=== PATIENT | female | born 1960 | race Caucasian/White ===

== ENCOUNTER 2024-10-23 08:56 | Inpatient (IN) ==
--- NOTE | 2024-10-11 13:35 | Anesthesiology Consultation ---
Date of Service October 11, 2024 Assessment & Plan (1) Encounter for pre-operative examination: - Infectious disease screening: Per assessment on 10/11/24- No known recent infectious disease contacts or current infectious disease symptoms. - ASA/Plavix/Xarelto instructions per surgeon/prescriber - Vascular surgery visit (10/08/24): "Patient does have significant bilateral ICA stenosis. Her right side is about 60 to 70% on CTA, her left ICA, however, does demonstrate at least 90% stenosis.. Patient elected proceed with left TCAR.. We did send a prescription for Plavix to the pharmacy today for her to begin taking" - A[place] [facility] [place] (appt 10/12). Patient otherwise acceptable risk for given surgery pending evaluation DOS. Chart Review Chart Review: Patient NOT seen in Pre Admission Testing History Surgery Operation Date: 10/23/24 12:00 Proposed Procedures p Transcarotid Artery Revascularization - Nickolas Davenport MD Height/Weight Height: 5 ft 4 in Weight: 53.977 kg Allergies Allergy/AdvReac Type Severity Reaction Status Date / Time Hgazuzh-IUU-IxO Reductase Allergy Mild "can't Verified 10/11/24 13:25 Inhibitor walk" Medications Home Medications Medication Instructions Recorded Confirmed Last Taken acetaminophen 650 mg 650 mg PO Q8H PRN Pain 12/30/23 10/11/24 Unknown tablet,extended release (Tylenol Arthritis Pain) amlodipine 5 mg tablet 5 mg PO HS 10/11/24 10/11/24 Unknown aspirin 81 mg tablet,delayed 81 mg PO QAM 10/11/24 10/11/24 Unknown release (Adult Low Dose Aspirin) cholecalciferol (vitamin D3) 50 50 mcg PO QAM 10/11/24 10/11/24 Unknown mcg (2,000 unit) capsule (Vitamin D3) ezetimibe 10 mg tablet 10 mg PO HS 10/11/24 10/11/24 Unknown lisinopril 10 mg tablet 10 mg PO QAM 10/11/24 10/11/24 Unknown mmfmzgpb-ctod-besx 8 mg-folic 400 1 tab PO QAM 10/11/24 10/11/24 Unknown mcg-K 50 mcg-lutein 300 mcg tablet (Centrum Silver Women) rivaroxaban 20 mg tablet (Xarelto) 75 mg PO QAM 10/11/24 10/11/24 Unknown Past Medical History Medical History Carotid artery stenosis History of palpitations HTN (hypertension) Lumbar back pain Hx cortisone injections, most recent ~ 2 months ago PAD (peripheral artery disease) Post bilateral lower extremity SFA angioplasty/stenting x3 stents (most recent 08/2023) Follows with [facility] Past Family History Family History Mother Myocardial infarction Coronary heart disease S/P CABG (coronary artery bypass graft) Alzheimer disease Father Lymphoma Brother Lymphoma Denies family history of Ovarian cancer Prostate cancer Breast cancer Colorectal cancer Past Surgical History Surgical History H/O tooth extraction all teeth extracted History of breast lift History of tubal ligation S/P ORIF (open reduction internal fixation) fracture L wrist- plate S/P peripheral artery angioplasty with stent placement Post bilateral lower extremity SFA angioplasty/stenting x3 stents total (Rx2, Lx1) Most recent 08/26/23 Social History Smoking Status: Current every day smoker tobacco type: cigarettes Smoking cigarettes per day: 1.5 ppd (advised) Do You Dip or Chew Tobacco: No Hx Alcohol Use: Yes Alcohol type: beer alcohol intake frequency: a few times a week Alcohol Intake Frequency Comment: 3-4 beers once per week Hx Substance Use: No substance use type: does not use Lab Results Anesthesia Preop Results Results Anesthesia Widget: WBC 7.20 K/ul (4.8-10.8) 10/08/24 Hgb 15.0 g/dl (12.0-16.0) 10/08/24 Hct 44.0 % (37.0-47.0) 10/08/24 Plt 455 K/uL (130-400) H 10/08/24 Na 137 mmol/L (136-145) 10/08/24 K 3.9 mmol/L (3.5-5.1) 10/08/24 Cl 102 mmol/L (98-107) 10/08/24 CO2 29 mmol/L (21-32) 10/08/24 BUN 8 mg/dl (6-23) 10/08/24 Creat 0.71 mg/dl (0.6-1.2) 10/08/24 Glucose Level 89 mg/dl (70-99(Fasting)) 10/08/24 PTT 27 Seconds (21-31) 10/08/24 Blood Type B Positive 10/08/24 Antibody Screen NEGATIVE 10/08/24 Testing Electrocardiogram Date: 10/08/24 Normal sinus rhythm at 69 bpm. Low voltage QRS. "Otherwise normal ECG " No significant change compared to 06/13/2023 per signal and communications maintainer comparison. Poor data quality. Chest X-Ray Date: 10/08/24 Findings: + NAD Other Testing 3 day galvanizer zinc Indication: palpitations Date: 11/03/23 Sinus rhythm (61-120; Avg 82 bpm). Rare PACs. Rare PVCs Few episodes of brief paroxysmal SVT (longest 11 beats). Neck CTA Date: 09/20/24 "Reports severe stenosis within the proximal left internal carotid artery demonstrating up to 90% stenosis. There is also severe focal stenosis within the proximal right internal carotid artery approximately 1 cm from the bifurcation demonstrating 80% stenosis. The mid to distal bilateral internal carotid arteries appear patent." Atheromatous calcification seen in right carotid bulb extending to right ICA causing 30-40% luminal narrowing. Eccentric at the thrombus calcification seen in left carotid bulb causing mild luminal narrowing.
--- NOTE | 2024-10-22 14:41 | History & Physical Report ---
Date of Service October 22, 2024 History of Present Illness Primary Care Provider: Ivette Feng DO Name: RADHA MARIE Patient Number: [id number] : 1960 Date of Service: 10/08/2024 Chief Complaint: _Follow-up to discuss CTA HPI: _Ms. Marie is a middle-age female presents to Dr. Davenport's vascular surgery clinic today for a follow-up appointment to discuss her neck CTA which was performed at [facility] on 09/20/2024. Patient denies any new concerns or symptoms. She is anxious for her results. CTA of her neck does demonstrate at least 90% stenosis of her left ICA, and 60 to 70% stenosis of her right ICA. Current Home Meds: (Last Updated 10/08 13:44) amLODIPine (amLODIPine 5 mg oral tablet) 5 mg PO Daily aspirin (Aspirin Low Dose 81 mg oral delayed release tablet) 81 mg PO Daily cholecalciferol (Vitamin D3 25 mcg (1000 intl units) oral capsule) 25 mcg PO Daily clopidogrel (Plavix 75 mg oral tablet) 75 mg PO Daily ezetimibe (ezetimibe 10 mg oral tablet) 10 mg PO Daily lisinopril (lisinopril 10 mg oral tablet) 10 mg PO Daily multivitamin 1 tab PO Daily Allergies and Sensitivities: Statins (HMG-CoA reductase inhibitors)(Muscle weakness) Past Medical History: Problems: Tobacco user Bilateral carotid artery stenosis OBJECTIVE Vitals: Last Updated 10/08/24 13:14 Date Temp BP Location Pulse RR SpO2 Pain 10/08/24 112/84 Right Arm 10/08/24 142/86 Left Arm 88 18 98 0 08/23/24 128/76 Right Arm Vital Signs are the last 3 documented. No Orthostatic Data Available Height and Weight: Last Updated 10/08/24 13:08 Date BMI Wt(kg) Wt(lb) Method Ht(cm) (ft-in) Method 10/08/24 53.5 118 Standing Scale Heights and Weights are the last 3 documented. Physical Exam Constitutional: Annual patient is a healthy-appearing well-nourished well- developed middle-aged female in no distress. She is alert and oriented with any focal deficits. Head is normocephalic and atraumatic. Trachea is midline. Carotids do demonstrate a faint bruit. Heart is regular, lungs are decreased but clear throughout. Abdomen is soft nontender with normal bowel sounds in all 4 quadrants. Brachial and radial pulses are +3 in the left +2 on the right. Femoral pulses are +2. Lower extremities the pulses are +1 DP, nonpalpable PTs. She has brisk capillary fill and no sign of distal ischemia ASSESSMENT: _ PLAN: _ 1 ) _bilateral carotid stenosis Patient does have significant bilateral ICA stenosis. Her right side is about 60 to 70% on CTA, her left ICA, however, does demonstrate at least 90% stenosis. This does provide her significantly increased risk of CVA. Surgical options were discussed with the patient today including carotid endarterectomy versus transcarotid artery revascularization. Patient elected proceed with left TCAR. The procedure, benefits, and alternatives were discussed with the patient. Additionally the risks of the procedure including but not limited to bleeding, infection, heart attack, nerve damage, , blood clots, and stroke, were discussed with the patient by myself at Dr. Davenport's request. Patient expresses understanding and agreement to proceed. This will occur in the next few weeks at the patient's convenience. We did send a prescription for Plavix to the pharmacy today for her to begin taking in preparation for her upcoming procedure. She understands that she will require DAPT as well as her cholesterol medication for at least 1 year postoperatively. Patient was advised to call any questions or concerns. Thank you for letting us participate in the care of this patient. I have personally spent_38__ minutes performing keei-ob-gsqc and ykr-hzwc-te-face activities on this date of service.Time does not include separately reported services. Activities Include: x__ review of the medical record x__ obtaining a history _x_ physical exam/evaluation __ review labs x__ review radiology reports x__ counseling/educating patient/family/caregiver __ discussion/referral to other healthcare professional _x_ documenting care in the medical record __ independent interpretation of results x__ communication of results to patient/family/caregiver x__ coordination of care Signature Line Electronic Signature on File CC: Sindi Caballero PA-C [facility] [address] [address] * Electronically Reviewed/Signed by: India Mckenna PA-C Author Signature Dt/Tm:10/08/2024 02:02 PM [facility] [place] [address], [address] [place] [address] LM Result Type: HVI Outpt Note Date of Service: October 08, 2024 13:58 EST Authorization Status: Final Author or Import Date: BRITTANY Mckenna Lynn on October 08, 2024 14:02 EST Verified By: BRITTANY Mckenna Lynn on October 08, 2024 14:02 EST Encounter info: [id number], [facility], Clinic, 10/08/2024 - 10/08/2024 Allergies Allergy/AdvReac Type Severity Reaction Status Date / Time Aaazcch-GYT-YcY Reductase Allergy Mild "can't Verified 10/11/24 13:25 Inhibitor walk" Home Medications Medication Instructions Recorded Confirmed Type acetaminophen 650 mg 650 mg PO Q8H PRN Pain 12/30/23 10/11/24 History tablet,extended release (Tylenol Arthritis Pain) amlodipine 5 mg tablet 5 mg PO HS 10/11/24 10/11/24 History aspirin 81 mg tablet,delayed 81 mg PO QAM 10/11/24 10/11/24 History release (Adult Low Dose Aspirin) cholecalciferol (vitamin D3) 50 50 mcg PO QAM 10/11/24 10/11/24 History mcg (2,000 unit) capsule (Vitamin D3) ezetimibe 10 mg tablet 10 mg PO HS 10/11/24 10/11/24 History lisinopril 10 mg tablet 10 mg PO QAM 10/11/24 10/11/24 History dbyqtymz-fwnm-vdqo 8 mg-folic 400 1 tab PO QAM 10/11/24 10/11/24 History mcg-K 50 mcg-lutein 300 mcg tablet (Centrum Silver Women) celecoxib 100 mg capsule (Celebrex) 100 mg PO BID pain #60 caps 10/12/24 Rx clopidogrel 75 mg tablet 75 mg PO DAILY #30 tabs 10/12/24 Rx evolocumab 140 mg/mL subcutaneous 140 mg subcut .every 2 weeks #2 mL 10/12/24 10/12/24 Rx pen injector (Ayleen Morgan) Past Med/Surg History Problem List (Updated 10/11/24 @ 13:27 by Macie Lilly) Encounter for pre-operative examination Tobacco use disorder Dyslipidemia HTN (hypertension) Vitamin D deficiency PAD (peripheral artery disease) Medical History Carotid artery stenosis History of palpitations HTN (hypertension) Lumbar back pain Hx cortisone injections, most recent ~ 2 months ago PAD (peripheral artery disease) Post bilateral lower extremity SFA angioplasty/stenting x3 stents (most recent 08/2023) [facility] Surgical History H/O tooth extraction all teeth extracted History of breast lift History of tubal ligation S/P ORIF (open reduction internal fixation) fracture L wrist- plate S/P peripheral artery angioplasty with stent placement Post bilateral lower extremity SFA angioplasty/stenting x3 stents total (Rx2, Lx1) Most recent 08/26/23 Family History Mother Myocardial infarction Coronary heart disease S/P CABG (coronary artery bypass graft) Alzheimer disease Father Lymphoma Brother Lymphoma Denies family history of Ovarian cancer Prostate cancer Breast cancer Colorectal cancer Social History Smoking Status: Current every day smoker Tobacco Type: Cigarettes Age Started Using Tobacco: 16; packs per day: 1; Cigarettes Per Day: 1.5 ppd (advised); Second Hand Exposure: No; Do You Dip or Chew Tobacco: No; Tobacco Cessation Education Requested by Patient: No Hx Alcohol Use: Yes Alcohol type: beer Alcohol Intake Frequency: Monthly or Less Hx Substance Use: No Preferred Language: Maori Communication Ability: Effective Visual Impairment: No Limitations Hearing Ability: Normal Tooling Supervisor Required: No Beliefs That Will Affect Care: None marital status: Current Living Situation: Spouse Current Living Situation Comment: works away, home for 2 weeks every 2 months current occupational status: unemployed Other Information That Helps Us Care for You: No Feels Safe at Home: Yes Safety Concerns: Feels Safe At This Time Childhood Exposure to Second-Hand Smoke: No Diet: regular caffeine: Yes (coffee) during the past year weight has: remained stable Dental Care, Regularly: No Physical Activity Frequency: Daily Seatbelt Use: sometimes Sunscreen Use: No Assistive Devices: Denture - Upper, Denture - Lower and Glasses
[2024-10-23] MEDS: LACTATED RINGER'S 1,000 ML IV SCH ×2 (09:20→13:52)
--- NOTE | 2024-10-23 09:35 | History & Physical Bridge Note ---
Date of Service October 23, 2024 History & Physical Bridge Note I have examined the patient, reviewed the History & Physical and in the interval since the performance of the History & Physical I have noted the following changes of clinical significance: no changes noted
[2024-10-23] MEDS ORDERED: ePHEDrine sulfate 50 MG/ML AMP IV PRN (09:40)
[2024-10-23] MEDS ORDERED: PROMETHAZINE HCL 6.25 MG in SODIUM CHLORIDE 0.9% 50 ML IV PRN (09:40)
[2024-10-23] MEDS ORDERED: ATROPINE SULFATE 0.1 MG/ML 10ML SYR IV PRN (09:40)
[2024-10-23] MEDS ORDERED: fentaNYL citrate PF 100 MCG/2 ML VIAL IV PRN (09:40)
[2024-10-23] MEDS ORDERED: ONDANSETRON INJ 2 MG/ML 2 ML VIAL IV PRN ×2 (09:40→13:07)
[2024-10-23 09:58] LABS: BUN Creatinine Ratio 21.1 (10-20); Calcium 9.5 mg/dl (8.6-10.3); Creatinine Clr Calc Pharmacy 66.7 ml/min
[2024-10-23] MEDS ORDERED: fentaNYL citrate PF 100 MCG/2 ML VIAL ONE ×2 (10:04→10:57)
[2024-10-23] MEDS ORDERED: MIDAZOLAM HCL 1 MG/ML 2ML VIAL ONE (10:04)
[2024-10-23] MEDS ORDERED: PROPOFOL IV EMULSION 10 MG/ML 20 ML VIAL IV ONE (10:06)
[2024-10-23] MEDS ORDERED: ROCURONIUM BROMIDE 10 MG/ML 5 ML VIAL IV ONE (10:06)
[2024-10-23] MEDS ORDERED: LIDOCAINE 2% 2 ML VIAL/AMP(20MG/ML) INFIL ONE (10:06)
[2024-10-23] MEDS ORDERED: GLYCOPYRROLATE 0.2 MG/ML VIAL ONE (10:06)
[2024-10-23] MEDS ORDERED: DEXAMETHASONE SOD INJ 4 MG/ML VIAL ONE (10:09)
[2024-10-23] MEDS ORDERED: ONDANSETRON INJ 2 MG/ML 2 ML VIAL ONE (10:09)
[2024-10-23] MEDS: ceFAZolin 2000MG 2,000 MG/15 ML SYR IV SCH ×2 (10:44→18:16)
[2024-10-23] MEDS ORDERED: ePHEDrine sulfate 50 MG/5 ML SYR ONE (10:46)
[2024-10-23] MEDS ORDERED: PHENYLEPHRINE HCL 10 MG/ML VIAL ONE (11:21)
[2024-10-23] MEDS: THROMBIN FOR SOLN 20000 UNIT KIT ONE (11:22)
[2024-10-23] MEDS: GELATIN SPONGE SZ 100 ONE (11:22)
[2024-10-23] MEDS ORDERED: SUGAMMADEX SODIUM 200 MG/2 ML VIAL IV ONE (11:25)
[2024-10-23] MEDS: BUPIVACAINE/EPINEPHRINE 0.5% MPF 1:200,000 30 ML VIAL ONE (11:36)
[2024-10-23] MEDS: ceFAZolin 330 MG/ML 1 GM VIAL ONE (11:42)
[2024-10-23] MEDS: VISIPAQUE IV ONE (11:44)
--- NOTE | 2024-10-23 11:45 | Procedure Note ---
Angiogram Post Procedure Fluoroscopy Time (minutes): 1.6 Radiation (mGy): 18 Contrast: 9 Post Operative Report Pre & Post Diagnosis Operation Date: 10/23/24 10:10 Pre-Op Diagnosis: Left Internal Carotid Artery Stenosis Post-Op Diagnosis: Left Internal Carotid Artery Stenosis I identified the patient and participated in the time-out.: Yes Procedure Operation Date: 10/23/24 10:10 Actual Procedures p Left Transcarotid Artery Revascularization(Left), Ultrasound right common femoral vein - Nickolas Davenport MD Surgeon Nickolas Davenport MD Mechanic Welder Truck Driver Papo,PAC Estimated Blood Loss 10 Findings Consistent with Post-Op Diagnosis Specimens none Anesthesia Type General Complications none Disposition Accompanied Patient To Recovery: No Disposition: Recovery Room Indications This is a 64-year-old female Smaldone with have a severe stenosis of the left internal carotid artery. Endarterectomy versus TCAR was recommended. She elected to go ahead with a TCAR procedure. I have discussed the risks options and benefits of the procedure with the patient. The patient understands the risks options and benefits and agrees to the procedure. Description of Procedure The patient was taken to the operating room and placed in supine position. After general anesthesia was accomplished the groins and left side of the neck and chest were prepped and draped in a sterile manner. Timeout was performed and the patient was identified. A transverse incision was made just above the clavicle between the heads of the sternocleidomastoid. This was carried down to where the common carotid artery was identified. It was isolated and slung with an umbilical tape. It was given 7000units of heparin at that time. Ultrasound was then used to localize the right common femoral vein. The vein was patent and compressed easily. Under ultrasound guidance the right common femoral vein was punctured and the venous sheath was inserted. This was aspirated and flushed with heparinized saline. An ACT at that time was 241. Another 2000 and units of heparin were given and follow-up ACT was 252. Using micropuncture technique the common carotid artery was punctured using a tunneling technique.. The micro sheath was inserted to 3 cm. Injection was then done showing the bifurcation. There was a significant lesion seen just beyond the origin of the internal carotid artery on the left side. We reinserted the micro wire and sheath and passed it into the external carotid. We then advanced the dilator and sheath into the external carotid. The dilater and sheath were removed. We then inserted the J-wire into the external carotid artery. The TCAR sheath was inserted. Once it was in place at the 2 and half centimeter flores it was sutured to the chest wall and the incision edge. We then flushed the tubing appropriately. The venous return tubing was clamped onto the TCAR sheath. It was flushed through and then attached to the venous inflow sheath in the right groin. The sheath was checked for flow. The common carotid artery was then clamped. Flow through the venous return sheath was again checked and found to be adequate. We then inserted a 5 x 25 balloon backloaded on the wire. The wire was passed through the lesion into the petrous portion of the internal carotid. The 5 balloon was then advanced to the lesion. The lesion was then predilated with the 5 mm balloon. The balloon was removed. We then inserted the 9/7 x 30 stent. This was deployed across the lesion without difficulty. The catheter was removed. The carotid was allowed to go 2 minutes with flow reversal. We did another angiogram which showed no residual stenosis and a nicely seated stent.The wire was removed and the common carotid artery was unclamped. The venous return tubing was clamped and removed from the TCAR sheath. The blood was allowed to flow back into the venous system. The TCAR sheath was then removed and the 5-0 Prolene suture securely tied. Hemostasis was noted of the puncture site. The patient was given 25 mg of protamine. Another ACT was performed which was 118. The sheath was pulled from the groin and pressure was applied. Wound was irrigated with Ancef solution. Adequate hemostasis was obtained of the wound. Once this was noted the wound was closed in usual fashion using a 3-0 Vicryl suture for the subcutaneous layer and a 4-0 subcuticular Vicryl suture for the skin edges. Dermabond was used for dressing.The patient left the operation room in satisfactory condition and tolerated the procedure well. All needle and sponge counts were correct at the end of the procedure. India Mckenna Pac assisted due to lack of resident availability and was necessary for positioning, draping, retraction, wound closure deep layers, subcutaneous tissue, and skin closure and was necessary for assisting with the case. I attest to the content of the Intraoperative Record and any orders documented therein. Any exceptions are noted below.
--- OUTSIDE RECORDS SUMMARY | 2024-10-23 12:00 | External Medical Summary | Continuity of Care Document ---
Author Name Unknown Organization [facility] [address] Address [address] [place], [place] [id number] Care Team Providers Care Youth Care Worker Name Role Phone Federico, Sindi Lucas Primary Care Physician [phone] Encounter [facility] [id number] Date(s): 10/16/24 - 10/16/24 [facility] [address] [facility] [address] [place], [place] [phone] Encounter Diagnosis Occlusion and stenosis of bilateral carotid arteries(Final) - Discharge Disposition: Home or Self Care Attending Physician: BRITTANY Mckenna Lynn Referring Physician: BRITTANY Mckenna Lynn Encounter Type: Clinic Allergies, Adverse Reactions, Alerts Substance Criticality Severity Reaction Reaction Severity Status Statins (HMG-CoA reductase inhibitors) Muscle weakness Act santiago Medications amLODIPine 5 mg oral tablet Start: 10/08/24 1:10:00 PM EST, 1 tab, PO, Daily Start Date: 10/08/24 Status: Ordered Repeat number: 1 Aspirin Low Dose 81 mg oral delayed release tablet Start: 08/23/24 8:57:00 AM EST, 1 tab, PO, Daily Start Date: 08/23/24 Status: Ordered Repeat number: 1 ezetimibe 10 mg oral tablet Start: 08/23/24 8:57:00 AM EST, 1 tab, PO, Daily Start Date: 08/23/24 Status: Ordered Repeat number: 1 lisinopril 10 mg oral tablet Start: 08/23/24 8:57:00 AM EST, 1 tab, PO, Daily Start Date: 08/23/24 Status: Ordered Repeat number: 1 multivitamin Start: 10/08/24 1:10:00 PM EST, 1 tab, PO, Daily Start Date: 10/08/24 Status: Ordered Repeat number: 1 Plavix 75 mg oral tablet Start: 10/11/24 10:27:00 AM EST, 1 tab, PO, Daily, Disp# 90 tab, Refills: 3, Pharmacy: [facility] Start Date: 10/11/24 Status: Ordered Quantity: 90.0 Unit: tab Repeat number: 4 Indication: Occlusion and stenosis of bilateral carotid arteries Vitamin D3 25 mcg (1000 intl units) oral capsule Start: 08/23/24 8:57:00 AM EST, 1 cap, PO, Daily Start Date: 08/23/24 Status: Ordered Repeat number: 1 Problem List Condition Confirmation Course Effective Dates Status Health St atus Informant Bilateral carotid artery stenosis Confirmed Active Tobacco user Confirmed Active Results Laboratory List Name Date Platelet Function (P2Y12 Receptor) (PLT FUNCTION P2Y12) 10/16/24 Most recent to oldest [Reference Range]: 1 P2Y12 Platelet Function [194-418 PRU] 5 PRU 1 *LOW* (10/16/24 11:58 AM) 1Result Comment: PRU reference range is 194-418 (healthy adults, no drug treatment). Post Drug Results: Lower PRU levels are expected following treatment with antiplatelet drugs. Post-treatment values are usually below the stated reference range above. The post-drug PRU values reported in the Ver[employer]NOW P2Y12 package insert are 18-435. This broader range reflects the variability in drug response and is consistent with significant numbers of patients with decreased sensitivity to P2Y12 receptor antagonists (prasugrel or clopidogrel). Clinical studies suggest an on-treatment PRU>230 indicates less than optimal response to therapy, and PRU<208 at 12-24 hours after percutaneous intervention or during follow-up is associated with a lower risk of cardiovascular events (1). (1).Standard-vs high-dose clopidogrel based on platelet function testing after percutaneouscoronary intervention: the GRAVITAS randomized trial. Aftab et al. KYLE. 2010October 21; 305(11): 3836-9796. doi: 10.1001/kyle.2011.290 Social History Social History Type Response Smoking Status Current every day he cary smoker Sex Sex Representation Female (finding) Patient Care team information Care Team Personnel Name: BRITTANY Mckenna Lynn Position: Physician Shovel Loader Operator Exempt - Vasc Surg Member Role: Lifetime Relationship [address]: [address] [place] [address] Telecom: [phone] Name: BRITTANY Caballero Taylor A Position: Referring Member Role: Primary Care Provider Address: [facility] [address] [facility] [address] Telecom: [phone] Insurance Providers Guarantor name: Health Plan Information #: 2 Payer: MEDICARE Member Number: [id number] Policy Number: DUSTIN Group Number: DUSTIN Health Plan Information #: 1 Payer: [employer] OPEN [employer]ESS PLUS Member Number: [id number] Policy Number: DUSTIN Group Number: [id number]
[2024-10-23] MEDS ORDERED: oxyCODONE/ACETAMINOPHEN 5mg/325mg TAB PO PRN (13:07)
[2024-10-23] MEDS ORDERED: PHENYLEPHRINE/NSS 25 MG/250 ML BAG IV PRN (13:07)
[2024-10-23] MEDS ORDERED: STAT IV Infusion **Titration per Protocol STA (13:07)
[2024-10-23] MEDS ORDERED: ACETAMINOPHEN 325 MG TAB PO PRN (13:13)
--- NOTE | 2024-10-23 15:40 | Critical Care Consultation ---
Date of Consultation October 23, 2024 Assessment & Plan (1) Left carotid stenosis: Reason Critically Ill: Status post left transcarotid stenting PLAN: Neuro: Postprocedural analgesia -Per surgery Resp: Tolerating room air CV: Hypertension -Continue antihypertensives ID: Antibiotics per vascular surgery GI/Nutrition: Tolerating regular diet Heme: DVT prophylaxis: Patient is ambulatory status Endocrine: ICU hyperglycemia protocol Vascular access: Peripheral IVs and radial arterial line Code Status: Full code Disposition: ICU (2) HTN (hypertension): (3) PAD (peripheral artery disease): History of Present Illness Reason for Consultation: Postop TCAR Attending Physician: Nickolas Davenport MD History of Present Illness Patient is a 64-year-old female who underwent a left internal carotid artery stenting. During my evaluation patient was eating lunch without complaint. Blood pressure well-controlled at this time Allergies Allergy/AdvReac Type Severity Reaction Status Date / Time Kanriai-RNT-IgJ Reductase Allergy Mild "can't Verified 10/23/24 09:03 Inhibitor walk" Home Medications Medication Instructions Recorded Confirmed Type acetaminophen 650 mg 650 mg PO Q8H PRN Pain 12/30/23 10/23/24 History tablet,extended release (Tylenol Arthritis Pain) amlodipine 5 mg tablet 5 mg PO HS 10/11/24 10/23/24 History aspirin 81 mg tablet,delayed 81 mg PO QAM 10/11/24 10/23/24 History release (Adult Low Dose Aspirin) cholecalciferol (vitamin D3) 50 50 mcg PO QAM 10/11/24 10/23/24 History mcg (2,000 unit) capsule (Vitamin D3) ezetimibe 10 mg tablet 10 mg PO HS 10/11/24 10/23/24 History lisinopril 10 mg tablet 10 mg PO QAM 10/11/24 10/23/24 History saydmzma-joog-voro 8 mg-folic 400 1 tab PO QAM 10/11/24 10/23/24 History mcg-K 50 mcg-lutein 300 mcg tablet (Centrum Silver Women) celecoxib 100 mg capsule (Celebrex) 100 mg PO BID pain #60 caps 10/12/24 10/23/24 Rx clopidogrel 75 mg tablet 75 mg PO DAILY #30 tabs 10/12/24 10/23/24 Rx evolocumab 140 mg/mL subcutaneous 140 mg subcut .every 2 weeks #2 mL 10/12/24 10/23/24 Rx pen injector (Repatha SureDustyick) Patient History Medical History Lumbar back pain Hx cortisone injections, most recent ~ 2 months ago Carotid artery stenosis History of palpitations HTN (hypertension) PAD (peripheral artery disease) Post bilateral lower extremity SFA angioplasty/stenting x3 stents (most recent 08/2023) Follows with [facility] vascular Surgical History S/P peripheral artery angioplasty with stent placement Post bilateral lower extremity SFA angioplasty/stenting x3 stents total (Rx2, Lx1) Most recent 08/26/23 S/P ORIF (open reduction internal fixation) fracture L wrist- plate History of breast lift H/O tooth extraction all teeth extracted History of tubal ligation Family History Mother Myocardial infarction Coronary heart disease S/P CABG (coronary artery bypass graft) Alzheimer disease Father Lymphoma Brother Lymphoma Denies family history of Ovarian cancer Prostate cancer Breast cancer Colorectal cancer Social History Smoking Status: Current every day smoker Tobacco Type: Cigarettes Age Started Using Tobacco: 16; packs per day: 1; Cigarettes Per Day: 1.5 ppd (advised); Second Hand Exposure: No; Do You Dip or Chew Tobacco: No; Tobacco Cessation Education Requested by Patient: No Hx Alcohol Use: Yes Alcohol type: beer Alcohol Intake Frequency: Monthly or Less Hx Substance Use: No Preferred Language: Bermudian Communication Ability: Effective Visual Impairment: No Limitations Hearing Ability: Normal Newspaper Deliverer Required: No Beliefs That Will Affect Care: None marital status: Current Living Situation: Spouse Current Living Situation Comment: works away, home for 2 weeks every 2 months current occupational status: unemployed Other Information That Helps Us Care for You: No Feels Safe at Home: Yes Safety Concerns: Feels Safe At This Time Childhood Exposure to Second-Hand Smoke: No Diet: regular caffeine: Yes (coffee) during the past year weight has: remained stable Dental Care, Regularly: No Physical Activity Frequency: Daily Seatbelt Use: sometimes Sunscreen Use: No Assistive Devices: Denture - Upper, Denture - Lower and Glasses Physical Exam Physical Exam: General: Alert. nontoxic. Skin: Warm, dry, left supraclavicular incision clean dry and intact no shadowing small amount ecchymosis Head: Atraumatic Ears, nose, mouth and throat: airway patent Cardiovascular: Normal peripheral perfusion Respiratory: no respiratory distress Gastrointestinal: Non distended Musculoskeletal: No deformity Results & Data Results & Data Vital Signs (Past 12 Hours) Vital Signs Temp Pulse Pulse Resp BP BP BP 10/23/24 15:00 70 13 118/63 127/54 L 10/23/24 14:01 74 19 97/54 L 117/45 L 10/23/24 13:00 10/23/24 13:00 81 15 99/53 L 104/47 L 10/23/24 12:50 36.4 C L 97 H 15 114/68 120/53 L 10/23/24 12:29 36.5 C 89 14 112/60 124/53 L 10/23/24 12:20 93 H 16 120/66 125/55 L 10/23/24 12:10 92 H 16 120/64 127/56 L 10/23/24 12:00 36.2 C L 100 H 18 129/78 10/23/24 08:57 36.6 C 69 20 121/69 116/65 Pulse Ox O2 Del Method O2 Flow Rate 10/23/24 15:00 94 Room Air 10/23/24 14:01 94 Room Air 10/23/24 13:00 Room Air 10/23/24 13:00 93 Room Air 10/23/24 12:50 93 Room Air 10/23/24 12:29 98 Nasal Cannula 2 10/23/24 12:20 100 Nasal Cannula 2 10/23/24 12:10 99 Oxymask 4 10/23/24 12:00 100 Oxymask 6 10/23/24 08:57 97 Room Air Critical Care Results & Data Vital Signs (Past 12 Hours) Vital Signs Temp Pulse Pulse Resp BP BP BP 10/23/24 15:00 70 13 118/63 127/54 L 10/23/24 14:01 74 19 97/54 L 117/45 L 10/23/24 13:00 10/23/24 13:00 81 15 99/53 L 104/47 L 10/23/24 12:50 36.4 C L 97 H 15 114/68 120/53 L 10/23/24 12:29 36.5 C 89 14 112/60 124/53 L 10/23/24 12:20 93 H 16 120/66 125/55 L 10/23/24 12:10 92 H 16 120/64 127/56 L 10/23/24 12:00 36.2 C L 100 H 18 129/78 10/23/24 08:57 36.6 C 69 20 121/69 116/65 Pulse Ox O2 Del Method O2 Flow Rate 10/23/24 15:00 94 Room Air 10/23/24 14:01 94 Room Air 10/23/24 13:00 Room Air 10/23/24 13:00 93 Room Air 10/23/24 12:50 93 Room Air 10/23/24 12:29 98 Nasal Cannula 2 10/23/24 12:20 100 Nasal Cannula 2 10/23/24 12:10 99 Oxymask 4 10/23/24 12:00 100 Oxymask 6 10/23/24 08:57 97 Room Air Lab & Micro Results (Past 24 Hours) No Data to Display Na 136 mmol/L (136-145) 10/23/24 K 4.0 mmol/L (3.5-5.1) 10/23/24 Cl 102 mmol/L (98-107) 10/23/24 CO2 30 mmol/L (21-32) 10/23/24 Anion Gap 4 (3-11) 10/23/24 BUN 15 mg/dl (6-23) 10/23/24 Creatinine 0.71 mg/dl (0.6-1.2) 10/23/24 BUN/Creatinine Ratio 21.1 (10-20) H 10/23/24 Glu 114 mg/dl (70-99(Fasting)) H 10/23/24 Ca 9.5 mg/dl (8.6-10.3) 10/23/24 Calcium Level 9.5 mg/dl (8.6-10.3) 10/23/24 08:58 I & O Totals 24 Hours 10/22/24 10/23/24 10/24/24 06:59 06:59 06:59 Intake Total 1050 / 1050 Output Total Balance 1040 / 1040 Cumulative 10/09/24 08:39 thru 10/23/24 12:30 Intake Total 1050 Output Total 10 Balance 1040 RT Ventilator Mngmt (Last Documented) Ventilator Ordered Settings Respiratory Rate 13 10/23/24 15:00 Ventilator - PT Measurements Respiratory Rate 13 Coding Level of Care Code 21404 IN/OBS CONSULT LVL 2,35M Diagnoses Left carotid stenosis I65.22 HTN (hypertension) I10 PAD (peripheral artery disease) I73.9
--- NOTE | 2024-10-23 15:40 | Anesthesiology Progress Note ---
Date of Service October 23, 2024 Anesthesia Post Procedure Vital Signs Vital Signs: Temp Pulse Pulse Resp BP BP BP 10/23/24 15:00 70 13 118/63 127/54 L 10/23/24 14:01 74 19 97/54 L 117/45 L 10/23/24 13:00 10/23/24 13:00 81 15 99/53 L 104/47 L 10/23/24 12:50 36.4 C L 97 H 15 114/68 120/53 L 10/23/24 12:29 36.5 C 89 14 112/60 124/53 L 10/23/24 12:20 93 H 16 120/66 125/55 L 10/23/24 12:10 92 H 16 120/64 127/56 L 10/23/24 12:00 36.2 C L 100 H 18 129/78 10/23/24 08:57 36.6 C 69 20 121/69 116/65 Pulse Ox O2 Del Method O2 Flow Rate 10/23/24 15:00 94 Room Air 10/23/24 14:01 94 Room Air 10/23/24 13:00 Room Air 10/23/24 13:00 93 Room Air 10/23/24 12:50 93 Room Air 10/23/24 12:29 98 Nasal Cannula 2 10/23/24 12:20 100 Nasal Cannula 2 10/23/24 12:10 99 Oxymask 4 10/23/24 12:00 100 Oxymask 6 10/23/24 08:57 97 Room Air Transfer of Care Handoff Completed per policy Notes Mental Status: alert / awake / arousable Patient Amnestic to Procedure: Yes Nausea / Vomiting: adequately controlled Pain: adequately controlled Airway Patency, RR, SpO2: stable & adequate BP & HR: stable & adequate Hydration State: stable & adequate Anesthetic Complications: no major complications apparent
[2024-10-23] MEDS: EZETIMIBE 10 MG TAB PO SCH (21:08)
[2024-10-23] MEDS: CELECOXIB 100 MG CAP PO SCH (21:08)
[2024-10-23] MEDS: amLODIPine BESYLATE 5 MG TAB PO SCH (22:38)
[2024-10-24] MEDS: ASPIRIN 81 MG ECTAB PO SCH (08:33)
[2024-10-24] MEDS: CEROVITE ADV FORMULA TAB PO SCH (08:33)
[2024-10-24] MEDS: CHOLECALCIFEROL 25 MCG (1000 UNITS) TAB PO SCH (08:33)
[2024-10-24] MEDS: CLOPIDOGREL BISULFATE 75 MG TAB PO SCH (08:34)
[2024-10-24] MEDS: lisinopril 10 MG TAB PO SCH (08:34)
[2024-10-24 10:50] VITALS: O2SAT 94
[2024-10-24 12:14] VITALS: RESP 18; TEMP 98.4
[2024-10-24 12:16] VITALS: BP 131/95; PULSE 93
--- NOTE | 2024-10-24 12:26 | Surgery Progress Note ---
Date of Service October 24, 2024 Assessment & Plan (1) S/P vascular surgery: Plan: Patient POD 1 from tcar. No complicating factors post op. D\C today Admission and Anticipated Discharge Date Admission Date: October 23, 2024 Subjective Patient without complaint. She denies any focal deficits Physical Exam Constitutional: WD/WN, vitals as above Neck: trachea midline Respiratory: normal respiratory effort; no respiratory distress Cardiovascular: Rate/Rhythm: regular rate and regular rhythm Skin: + incision (dry and clean) Neurologic: CN's II-XI intact bilaterally, normal sensation to monofilament and moves all extremities Psychiatric: A+Ox3, euthymic affect Results & Data Vital Signs (Past 12 Hours) Vital Signs Temp Pulse Pulse Resp BP Pulse Ox O2 Del Method 10/24/24 12:13 36.9 C 81 18 94 Room Air 10/24/24 12:03 93 H 18 10/24/24 11:00 131/95 10/24/24 11:00 76 24 94 10/24/24 10:00 119/66 10/24/24 10:00 66 20 94 10/24/24 09:06 73 21 93 10/24/24 09:00 102/52 L 10/24/24 09:00 102/52 L 10/24/24 09:00 102/52 L 10/24/24 08:54 78 21 94 10/24/24 08:41 36.4 C L 10/24/24 08:00 114/74 10/24/24 08:00 68 10/24/24 08:00 Room Air 10/24/24 08:00 Room Air 10/24/24 08:00 79 25 H 91 10/24/24 08:00 114/74 10/24/24 07:00 74 20 93 10/24/24 07:00 123/70 10/24/24 06:09 60 17 93 10/24/24 06:00 123/71 10/24/24 06:00 123/71 10/24/24 06:00 123/71 10/24/24 06:00 123/71 10/24/24 06:00 123/71 10/24/24 06:00 123/71 10/24/24 06:00 123/71 10/24/24 06:00 123/71 10/24/24 06:00 123/71 10/24/24 06:00 123/71 10/24/24 06:00 123/71 10/24/24 05:57 65 16 93 10/24/24 05:00 126/58 L 10/24/24 05:00 126/58 L 10/24/24 05:00 126/58 L 10/24/24 05:00 126/58 L 10/24/24 05:00 126/58 L 10/24/24 05:00 126/58 L 10/24/24 05:00 126/58 L 10/24/24 05:00 126/58 L 10/24/24 05:00 126/58 L 10/24/24 05:00 126/58 L 10/24/24 05:00 126/58 L 10/24/24 05:00 126/58 L 10/24/24 05:00 126/58 L 10/24/24 05:00 126/58 L 10/24/24 05:00 126/58 L 10/24/24 05:00 126/58 L 10/24/24 05:00 126/58 L 10/24/24 05:00 126/58 L 10/24/24 05:00 126/58 L 10/24/24 05:00 126/58 L 10/24/24 05:00 126/58 L 10/24/24 05:00 126/58 L 10/24/24 05:00 126/58 L 10/24/24 05:00 126/58 L 10/24/24 05:00 126/58 L 10/24/24 05:00 126/58 L 10/24/24 05:00 126/58 L 10/24/24 05:00 75 19 94 10/24/24 04:06 63 20 93 10/24/24 04:00 111/53 L 10/24/24 04:00 111/53 L 10/24/24 04:00 111/53 L 10/24/24 03:45 60 12 93 10/24/24 03:26 36.4 C L 10/24/24 03:00 110/63 10/24/24 03:00 110/63 10/24/24 03:00 110/63 10/24/24 03:00 110/63 10/24/24 03:00 110/63 10/24/24 03:00 110/63 10/24/24 03:00 110/63 10/24/24 03:00 110/63 10/24/24 03:00 110/63 10/24/24 03:00 110/63 10/24/24 03:00 110/63 10/24/24 03:00 110/63 10/24/24 03:00 110/63 10/24/24 03:00 110/63 10/24/24 03:00 110/63 10/24/24 03:00 110/63 10/24/24 03:00 110/63 10/24/24 03:00 110/63 10/24/24 03:00 110/63 10/24/24 03:00 59 L 14 94 10/24/24 03:00 110/63 10/24/24 03:00 110/63 10/24/24 03:00 110/63 10/24/24 03:00 110/63 10/24/24 03:00 110/63 10/24/24 03:00 110/63 10/24/24 03:00 110/63 10/24/24 03:00 110/63 10/24/24 03:00 110/63 10/24/24 02:06 60 16 93 10/24/24 02:00 102/51 L 10/24/24 02:00 102/51 L 10/24/24 02:00 102/51 L 10/24/24 02:00 102/51 L 10/24/24 02:00 102/51 L 10/24/24 02:00 102/51 L 10/24/24 02:00 102/51 L 10/24/24 02:00 102/51 L 10/24/24 02:00 102/51 L 10/24/24 02:00 102/51 L 10/24/24 02:00 102/51 L 10/24/24 01:57 65 14 93 10/24/24 01:18 65 10 L 94 10/24/24 01:00 104/55 L 10/24/24 01:00 104/55 L 10/24/24 01:00 104/55 L 10/24/24 01:00 104/55 L 10/24/24 01:00 104/55 L 10/24/24 01:00 104/55 L 10/24/24 01:00 104/55 L 10/24/24 01:00 104/55 L 10/24/24 01:00 104/55 L 10/24/24 01:00 104/55 L 10/24/24 01:00 104/55 L 10/24/24 01:00 104/55 L 10/24/24 01:00 104/55 L 10/24/24 01:00 104/55 L 10/24/24 01:00 104/55 L 10/24/24 01:00 104/55 L 10/24/24 01:00 104/55 L 10/24/24 01:00 104/55 L 10/24/24 01:00 104/55 L 10/24/24 01:00 104/55 L 10/24/24 01:00 104/55 L 10/24/24 00:54 66 15 93
--- NOTE | 2024-10-24 12:30 | Discharge Summary ---
Date of Service October 24, 2024 Admission HPI Per Admitting Provider Name: RADHA MARIE Patient Number: [id number] : 1960 Date of Service: 10/08/2024 Chief Complaint: _Follow-up to discuss CTA HPI: _Ms. Marie is a middle-age female presents to Dr. Davenport's vascular surgery clinic today for a follow-up appointment to discuss her neck CTA which was performed at [facility] on 09/20/2024. Patient denies any new concerns or symptoms. She is anxious for her results. CTA of her neck does demonstrate at least 90% stenosis of her left ICA, and 60 to 70% stenosis of her right ICA. Current Home Meds: (Last Updated 10/08 13:44) amLODIPine (amLODIPine 5 mg oral tablet) 5 mg PO Daily aspirin (Aspirin Low Dose 81 mg oral delayed release tablet) 81 mg PO Daily cholecalciferol (Vitamin D3 25 mcg (1000 intl units) oral capsule) 25 mcg PO Daily clopidogrel (Plavix 75 mg oral tablet) 75 mg PO Daily ezetimibe (ezetimibe 10 mg oral tablet) 10 mg PO Daily lisinopril (lisinopril 10 mg oral tablet) 10 mg PO Daily multivitamin 1 tab PO Daily Allergies and Sensitivities: Statins (HMG-CoA reductase inhibitors)(Muscle weakness) Past Medical History: Problems: Tobacco user Bilateral carotid artery stenosis OBJECTIVE Vitals: Last Updated 10/08/24 13:14 Date Temp BP Location Pulse RR SpO2 Pain 10/08/24 112/84 Right Arm 10/08/24 142/86 Left Arm 88 18 98 0 08/23/24 128/76 Right Arm Vital Signs are the last 3 documented. No Orthostatic Data Available Height and Weight: Last Updated 10/08/24 13:08 Date BMI Wt(kg) Wt(lb) Method Ht(cm) (ft-in) Method 10/08/24 53.5 118 Standing Scale Heights and Weights are the last 3 documented. Physical Exam Constitutional: Annual patient is a healthy-appearing well-nourished well- developed middle-aged female in no distress. She is alert and oriented with any focal deficits. Head is normocephalic and atraumatic. Trachea is midline. Carotids do demonstrate a faint bruit. Heart is regular, lungs are decreased but clear throughout. Abdomen is soft nontender with normal bowel sounds in all 4 quadrants. Brachial and radial pulses are +3 in the left +2 on the right. Femoral pulses are +2. Lower extremities the pulses are +1 DP, nonpalpable PTs. She has brisk capillary fill and no sign of distal ischemia ASSESSMENT: _ PLAN: _ 1 ) _bilateral carotid stenosis Patient does have significant bilateral ICA stenosis. Her right side is about 60 to 70% on CTA, her left ICA, however, does demonstrate at least 90% stenosis. This does provide her significantly increased risk of CVA. Surgical options were discussed with the patient today including carotid endarterectomy versus transcarotid artery revascularization. Patient elected proceed with left TCAR. The procedure, benefits, and alternatives were discussed with the patient. Additionally the risks of the procedure including but not limited to bleeding, infection, heart attack, nerve damage, , blood clots, and stroke, were discussed with the patient by myself at Dr. Davenport's request. Patient expresses understanding and agreement to proceed. This will occur in the next few weeks at the patient's convenience. We did send a prescription for Plavix to the pharmacy today for her to begin taking in preparation for her upcoming procedure. She understands that she will require DAPT as well as her cholesterol medication for at least 1 year postoperatively. Patient was advised to call any questions or concerns. Thank you for letting us participate in the care of this patient. I have personally spent_38__ minutes performing jrcf-rr-loii and cam-nlcp-zf-face activities on this date of service.Time does not include separately reported services. Activities Include: x__ review of the medical record x__ obtaining a history _x_ physical exam/evaluation __ review labs x__ review radiology reports x__ counseling/educating patient/family/caregiver __ discussion/referral to other healthcare professional _x_ documenting care in the medical record __ independent interpretation of results x__ communication of results to patient/family/caregiver x__ coordination of care Signature Line Electronic Signature on File CC: Sindi Caballero PA-C [facility] [address] [place] [id number] * Electronically Reviewed/Signed by: India Mckenna PA-C Author Signature Dt/Tm:10/08/2024 02:02 PM [facility] [address], [address] [place] [address] LM Result Type: HVI Outpt Note Date of Service: October 08, 2024 13:58 EST Authorization Status: Final Author or Import Date: BRITTANY Mckenna, [place] on October 08, 2024 14:02 EST Verified By: BRITTANY Mckenna [place] on October 08, 2024 14:02 EST Encounter info: [id number], [place] [address], Clinic, 10/08/2024 - 10/08/2024 Admission Exam Per Admitting Provider Constitutional: Annual patient is a healthy-appearing well-nourished well- developed middle-aged female in no distress. She is alert and oriented with any focal deficits. Head is normocephalic and atraumatic. Trachea is midline. Carotids do demonstrate a faint bruit. Heart is regular, lungs are decreased bu t clear throughout. Abdomen is soft nontender with normal bowel sounds in all 4 quadrants. Brachial and radial pulses are +3 in the left +2 on the right. Femoral pulses are +2. Lower extremities the pulses are +1 DP, nonpalpable PTs. She has brisk capillary fill and no sign of distal ischemia Principal Diagnosis Left internal carotid artery stenosis Discharge Exam Constitutional WD/WN, vitals as above Neck trachea midline Respiratory normal respiratory effort; no respiratory distress Cardiovascular Rate/Rhythm: regular rate and regular rhythm Skin + incision (dry and clean) Neurologic CN's II-XI intact bilaterally, normal sensation to monofilament and moves all extremities Psychiatric A+Ox3, euthymic affect Discharge Data Allergies Allergy/AdvReac Type Severity Reaction Status Date / Time Ldunafo-ANU-GvR Reductase Allergy Mild "can't Verified 10/23/24 09:03 Inhibitor walk" Consultations 10/23/24 13:07 Consult Viscosity Inspector Routine Procedures Performed Operation Date: 10/23/24 10:10 Actual Procedures p Left Transcarotid Artery Revascularization(Left) - Nickolas Davenport MD Ordered Studies 10/23/24 07:17 EV angio carotid cerv LT Routine US EV guide vascular access Routine Hospital Course (1) S/P vascular surgery: Patient POD 1 from tcar. No complicating factors post op. D\\C today Total Time Total Time Spent Total Time Spent (In Minutes): x Discharge Plan Discharge Items Patient Disposition: Home - Self-Care Reason For Visit: Left Internal Carotid Artery Stenosis Discharge Diagnosis: Left internal carotid artery stenosis Activity: Per Instructions section Non-emergency contact: Surgeon Call non-emergency contact if: your temperature is above 101.5, your wound has increased redness, your wound has increased drainage and your wound pain has increased Follow-up/Referrals: Ivette Feng, [Primary Care Provider] - Diet: Heart Healthy Addtl Attending Provider Instructions: SPECIAL CARE INSTRUCTIONS: Diet: * You may return to previous diet. Medications: * Continue to take Aspirin, plavix and zetia/rapatha as directed. Incision Care: * You may shower, but do not rub incision. You may let the warm soapy water run over it. Be sure to dry the incision well after bathing. * Do not shave directly over the incision until it is healed. * DO NOT IMMERSE THE INCISION IN A TUB/POOL/etc. UNTIL HEALED. Restrictions: * Do not drive for at least one week or if you are still taking any narcotic pain medication. * Do not lift anything heavier than a gallon of milk for one week after going home. Possible Complications: * Numbness - It is normal to have some numbness around the incision. Numbness can extend beyond the incision to areas of the neck, ear and face. The numbness is due to bruising of nerves during the surgery and will gradually improve over a period of months. * Hoarseness/Difficulty Speaking and Swallowing - The bruising of nerves in the neck can also cause a hoarse voice, difficulty speaking or swallowing. This may improve over time, HOWEVER, if it continues for more than a few days please contact our office ([phone]). * Excessive Swelling - There will be some swelling immediately after surgery which usually resolves within one week. If you notice that the swelling is getting worse, notify your surgeon ([phone]). * Drainage/Bleeding - If there is any drainage or bleeding, it should be a very small amount (less than a teaspoon per day). If you have excessive bleeding or drainage from the incision, call your surgeon ([phone]) right away. ACTIVATION OF EMERGENCY MEDICAL SYSTEM: Call 911, immediately, if you experience any of the following: Warning Signs and Symptoms of Stroke: * Sudden numbness or weakness of the face, arm or leg, especially on one side of the body * Sudden confusion, trouble speaking or understanding * Sudden trouble seeing in one or both eyes * Sudden trouble walking, dizziness, loss of balance or coordination * Sudden severe headache with no cause Do not delay calling 911 if you experience any warning signs or symptoms of a s troke. Delay in seeking medical attention may affect what treatments can be given to you. Risk Factors for Stroke: You can reduce your chances of stroke by working with your medical provider to adopt a healthy lifestyle. Some specific ways to lower your chance of stroke are: * If you are a smoker, now is the time to stop smoking cigarettes * If you are diabetic, improve the control of your blood sugars * Avoid excessive amounts of alcohol * Control high blood pressure * Lose weight if you are overweight * Be sure to lead an active lifestyle * Eat a healthy diet low in salt, cholesterol and fat You should know about other risk factors for stroke that you are unable to control. These include: * Age 55 years or older * Male gender * Certain racial groups: , or / * Family History of Stroke, Mini stroke or Heart Attack * Sickle Cell Disease You will be receiving a call from the Vascular Surgery Nurse after you are discharged. FOLLOW UP VISIT: It is important for you to keep your follow up appointments with your medical provider. Keep any scheduled doctor appointments. Call [phone] to schedule a follow up appointment if one not already scheduled. Pending Studies at Discharge: No Stand-Alone Forms: My [facility], Smoking Cessation Medications and DC Order Prescriptions: New oxycodone-acetaminophen [Percocet] 5-325 mg tablet 1 tab PO Q6H PRN (Reason: pain) Qty: 10 0RF Continued clopidogrel 75 mg tablet 75 mg PO DAILY Qty: 30 2RF celecoxib [Celebrex] 100 mg capsule 100 mg PO BID Qty: 60 1RF acetaminophen [Tylenol Arthritis Pain] 650 mg tablet extended release 650 mg PO Q8H PRN (Reason: Pain) Repatha SureClick 140 mg/mL pen injector 140 mg subcut .every 2 weeks Qty: 2 11RF ezetimibe 10 mg tablet 10 mg PO HS cholecalciferol (vitamin D3) [Vitamin D3] 50 mcg (2,000 unit) Capsule 50 mcg PO QAM Centrum Silver Women 8 mg iron-400 mcg-50 mcg tablet 1 tab PO QAM amlodipine 5 mg tablet 5 mg PO HS aspirin [Adult Low Dose Aspirin] 81 mg tablet,delayed release (DR/EC) 81 mg PO QAM lisinopril 10 mg tablet 10 mg PO QAM Discharge Orders: Discharge Order (Routine); Ordered 10/24/24 Ordered By: Nickolas Davenport Admission Data Admit Date/Time: 10/23/24 11:34 Attending Provider: Nickolas Davenport Admit Provider: Nickolas Davenport Primary Care Provider: Ivette Feng Other Providers: Clarke Stapleton; Robb Finley; Zelalem Brown; Neri Matias; Carlos Vera; Masood Alvarado; Nuvia Vivas
== END 2024-10-24 13:49 | disposition home or self-care (01) | DRG 36 ==
LOC: ASU 08:56 → 1E 11:34
PROC: EV.TCAR (2024-10-23 10:10)